=== PATIENT | female | born 1995 | race African-American/Black ===

== ENCOUNTER 2023-10-30 11:39 | Observation (INO) | payer OTHER, SELFPAY ==
--- NOTE | ~2023-10-30 | XR_ITS ---
XR hip BI 2V w AP pelvis Ordering provider: Daniela Raya PA-C History: . osteonecrosis . Comparison: None. FINDINGS: BONES: No acute fracture or dislocation. HIP JOINT SPACES: Mild bilateral hip osteoarthritic changes. SACROILIAC JOINT SPACES/LUMBAR SPINE: The sacroiliac joint spaces are normal. Postoperative changes i n the spine. PUBIC SYMPHYSIS: Normal. SOFT TISSUES: Normal. IMPRESSION: No acute osseous abnormality of the bilateral hips and pelvis. Mild osteoarthritic changes bilaterally. No obvious osteonecrosis if still suspicious is MRI is advis ed. Reviewed, dictated and finalized at location A. IMPRESSION: No acute osseous abnormality of the bilateral hips and pelvis. Mild osteoarthritic changes bilaterally. No obvious osteonecrosis if still susp icious is MRI is advised.
--- NOTE | ~2023-10-30 | CT_ITS ---
EXAMINATION: CT abdomen pelvis w con DATE: 10/30/2023 13:50 INDICATION: Febrile. Urinary tract infection. Severe flank pain. TECHNIQUE: Computed tomography (CT) of the abdomen and pelvis was performed with 100 mL Omnipaque-350 intravenous contrast. Automated exposure control and iterative reconstruction technique were employe d. The dose-length product was 262.25 mGy-cm. COMPARISON: Mild dependent atelectasis in the left lower lobe. Heart size is normal. No pericardial o r pleural effusion. Liver, gallbladder, spleen, pancreas, bilateral adrenal glands and left kidney ar e normal. There are a few scattered regions of decreased enhancement in the right kidney suspicious f or pyelonephritis. Bladder, anteverted uterus and bilateral adnexa are unremarkable. Bowels including the appendix are normal. Small amount of likely physiologic free fluid in the cul-de-sac. No abscess or free intraperitoneal gas. Lumbar levorotoscoliosis with enhancement at posterior spinal fusion wi th bilateral vertical lindsey and pedicle screw fixation beginning caudally at L3 and extending cephalad to at least T8 and beyond the cephalad margin of the field of view. Subarticular sclerosis consistent with osteonecrosis along significant portions of the bilateral femoral heads without evidence of col lapse of the articular surface. FINDINGS: Geographic regions of hypoenhancement in the right kidney suspicious for pyelonephritis. 2. Small amount of likely physiologic free fluid in the cul-de-sac. 3. Osteonecrosis at the bilateral femoral heads. IMPRESSION: 1. Reviewed, dictated and finalized at location A. IMPRESSION: 1.
[2023-10-30 11:56] VITALS: BP 108/67; PULSE 84; RESP 16; TEMP 39.8; O2SAT 96
[2023-10-30] MEDS: ACETAMINOPHEN 500 MG TABLET 1000 MG PO ×2 (12:16→18:57)
--- NOTE | 2023-10-30 12:34 | ED.FEMALEGU ---
HPI - Female Genitourinary General Chief complaint: Urogenital-Female Stated complaint: back pain, being treated for UTI Time Seen by Provider: 10/30/23 12:11 History of Present Illness HPI Narrative: Patient is a 28-year-old female with a history of lupus presenting with flank pain. States that she was treated for pyelonephritis at the end of last month. She was doing well until about 3 days ago when she again developed fevers and chills, nausea, bilateral flank pain, generalized malaise. She saw her event sales manager who started her on Bactrim but unfortunately her symptoms have continued. Denies abdominal pain, vomiting, diarrhea. Denies upper respiratory infection symptoms. Denies further complaints. Related Data Home Medications Medication Instructions Recorded Confirmed hydroxychloroquine 200 mg tablet 400 mg PO DAILY 10/30/23 10/31/23 norethindrone 1 mg-ethinyl 1 tablet PO DAILY 10/30/23 10/31/23 estradiol 35 mcg tablet (Nylia) tofacitinib 11 mg tablet,extended 11 mg PO DAILY 10/30/23 10/30/23 release 24 hr (Xeljanz XR) Allergies Allergy/AdvReac Type Severity Reaction Status Date / Time amoxicillin Allergy Unknown Unknown Verified 10/30/23 16:16 cat dander Allergy Unknown Unknown Verified 10/30/23 16:16 Review of Systems Review of Systems: All systems reviewed & are unremarkable except as noted in HPI and below PMFSH Past Medical History Medical History (Updated 10/31/23 @ 16:26 by Daniela Raya PA-C) Lupus Family History Family History Grandparent Thyroid disorder Social History Social History Smoking status: Never smoker Alcohol intake: current Drinks per week: 1 Substance use: never Substance use type: does not use Do You Feel Safe in your Home?: Yes Lack of Transportation: No Lack of Food: Never True Current Housing: I Have Housing Concerned About Future Housing: No Difficulty Paying Gas/Electric Bills: No Difficulty Paying for Meds: No Currently Unemployed: No Education: Decline to Answer Difficulty w/ Childcare or Family Care: No Spiritual care concerns: No Exam Narrative: GENERAL: nontoxic, in no acute distress, pleasant and cooperative HEAD: Normocephalic, atraumatic. EYES: PERRLA and EOMI. ENT: Nares clear, no rhinorrhea or epistaxis. Mucous membranes moist. NECK: Supple. CHEST: Clear to auscultation. No respiratory distress. HEART: Regular rate and rhythm ABDOMEN: Soft, nontender, nondistended; +bilateral CVA tenderness EXTREMITIES: Normal range of motion. No edema. SKIN: Warm, dry, no rash. NEURO: No focal deficits. Alert and oriented x3. PSYCH: Normal mood and affect. Course Vital Signs Vital signs: Vital Signs Temperature 103.6 F H 10/30/23 11:56 Pulse Rate 84 10/30/23 11:56 Respiratory Rate 16 10/30/23 11:56 Blood Pressure 108/67 10/30/23 11:56 Pulse Oximetry 96 10/30/23 11:56 Temperature 100 F H 10/31/23 14:35 Pulse Rate 88 10/31/23 13:57 Respiratory Rate 16 10/31/23 13:57 Blood Pressure 121/73 10/31/23 13:57 Pulse Oximetry 100 10/31/23 16:47 Oxygen Delivery Room Air 10/31/23 16:47 MDM - Female Genitourinary MDM Narrative Medical decision making narrative: 28-year-old female presenting with fevers, flank pain, nausea. Patient is febrile on arrival T 103.6?. Remainder of vitals are within normal limits. Exam remarkable for the above. Blood work concerning for leukocytosis with a white count of 16. CT abdomen pelvis is concerning for pyelonephritis. Urine certainly infected. Feel patient would benefit from admission for IV antibiotics and fluids given the fact that she has been on p.o. antibiotics for the last several days and she is chronically immunosuppressed. She is agreeable this plan. I spoke with the hospitalist who has accepted her for admission. Differ
[2023-10-30 13:07] LABS: Basophils Percent Auto 0.2 % (0.2-1.2); Eosinophils Percent Auto 0.1 % (0-4.4); Hematocrit 37.8 % (37.0-47.0); Hemoglobin 12.6 g/dL (12.0-15.0); Immature Granulocyte Absolute 0.08 K/mm3 (0.00-0.031); Immature Granulocyte Percent A 0.5 % (0-0.5); Lymphocytes Absolute Auto 0.61 K/mm3 (0.9-3.2); Lymphocytes Percent Auto 3.8 % (18.3-44.2); Mean Corpuscular HGB Conc 33.3 g/dl (32-36); Mean Corpuscular Hemoglobin 30.8 pg (26-34); Mean Corpuscular Volume 92.4 fl (80-100); Mean Platelet Volume 10.3 fl (7.4-10.4); Monocytes Absolute Auto 1.6 K/mm3 (0.1-0.6); Monocytes Percent Auto 9.8 % (2.6-8.5); Neutrophils Absolute Auto 13.8 K/mm3 (1.3-6.7); Neutrophils Percent Auto 85.6 % (45.5-73.1); Platelet Count Result 260 k/mm3 (150-375); Red Blood Count 4.09 M/mm3 (4.2-5.4); Red Cell Distribution Width 13.8 % (11.5-14.5); White Blood Count 16.1 K/mm3 (4.5-10.0)
[2023-10-30] MEDS: KETOROLAC 15 MG/ML VIAL (*BKC) IV PUSH (13:07)
[2023-10-30] MEDS: SODIUM CHLORIDE 0.9% IV 1,000 ML 999 ML IV CONT ×2 (13:07→13:38)
[2023-10-30] MEDS: ONDANSETRON INJ 4 MG/2 ML VIAL IV PUSH (13:07)
[2023-10-30 13:17] LABS: Lactic Acid Reflex 1.1 mmol/L (0.7-2.0)
[2023-10-30 13:18] LABS: Alanine Aminotransferase 12 U/L (6-35); Albumin Level 4.1 g/dL (3.5-5.1); Alkaline Phosphatase 93 U/L (38-126); Anion Gap 12 mmol/L (4-12); Aspartate Amino Transferase 24 U/L (14-36); Blood Urea Nitrogen 7 mg/dL (7-17); Carbon Dioxide 20 mmol/L (22-30); Chloride 101 mmol/L (98-107); Estimated CRCL calculation 64 ml/min; Estimated Glomerular Filt Rate > 60; Glucose 91 mg/dL (65-110); Lipase 24 U/L (23-300); Potassium 3.8 mmol/L (3.4-5.0); Sodium 133 mmol/L (137-145)
[2023-10-30 13:30] LABS: Pregnancy On Board Control Positive; Urine Pregnancy Test Negative
[2023-10-30 13:33] LABS: Add Urine Microscopic? YES; Appearance Urine Cloudy (Clear); Bacteria Urine 2+ /hpf; Bilirubin Urine Negative (Negative); Blood Urine 3+ (Negative); Color Urine Yellow (Yellow); Glucose Urine UA Negative (Negative); Ketones Urine Trace mg/dL (Negative); Leukocyte Esterase Ur 3+ LEU/UL (Negative); Nitrate Urine Negative (Negative); Non Pathogenic Casts 0-2; Protein Urine 1+ mg/dL (Negative); RBC Urine >100 /hpf (0-2); Specific Grav Ur 1.016 (1.001-1.035); Squamous Epithelial Cell Urine None Seen /hpf (Few); WBC Urine >100 /hpf (0-3); pH Urine 6.5 (5.0-9.0)
[2023-10-30 14:02] VITALS: BP 127/70; PULSE 88; RESP 17; TEMP 37.1; O2SAT 100
[2023-10-30 14:08] VITALS: TEMP 37.1
[2023-10-30] MEDS: cefTRIAXone 2 GM/NS 100 ML 2 GM/100 ML BAG IVPB (14:17)
--- NOTE | 2023-10-30 16:00 | PM.IMHP ---
H&P: HPI History of Present Illness Date/Time: 10/30/23 16:00 Chief Complaint: Flank Pain, Fever Narrative: 28 y/o F presents here with dysuria, fever, and chills with PMH of lupus (SLE). The patient presents here from home for further evaluation of fever, chills, nausea, vomiting, migraine, and flank pain. The patient was initially diagnosed with a UTI/pyelonephritis on 10/01. Initially prescribed cefdinir 300 mg b.i.d. x7 days on 10/01/23. Patient improved and was feeling well until approximately 3 days ago when symptoms reoccurred. Patient was then prescribed SMZ/TMP DS 800-160 b.i.d. x5 days on 10/28/23. Despite compliance with p.o. antibiotics, patient has not improved and now has fever, chills, nausea, and one episode of vomiting. Patient has history of lupus and is on Plaquenil. Patient ran out of Plaquenil and has been off it for 2 months, restarted within the last week and has follow-up with her insulation cutter and former in the next week. Denies accompanying abdominal pain, body aches, diaphoresis, dysuria, hematuria, or fatigue. No previous hx of complicated UTIs or resistant UTIs. Initial VS at presentation: 103.6? F, HR 84, RR 16, 108/67, and 96% on RA. ED workup showed: WBC 16.1, no anemia, sodium 133, creatinine 1.2 and GFR >60, and UA consistent with UTI. CT of the abdomen/pelvis showed hypopneas mint in the right kidney suspicious for pyelonephritis small amount of likely physiologic free fluid in the cul-de-sac, and osteonecrosis at the bilateral femoral heads. Review of Systems Review of Systems: All systems reviewed & are unremarkable except as noted in HPI and below PMFSH Past Medical History Medical History Lupus Family History Family History Grandparent Thyroid disorder Social History Social History Smoking status: Never smoker Alcohol intake: current Drinks per week: 1 Substance use: never Substance use type: does not use Do You Feel Safe in your Home?: Yes Lack of Transportation: No Lack of Food: Never True Current Housing: I Have Housing Concerned About Future Housing: No Difficulty Paying Gas/Electric Bills: No Difficulty Paying for Meds: No Currently Unemployed: No Education: Decline to Answer Difficulty w/ Childcare or Family Care: No Spiritual care concerns: No Meds Home Medications and Allergies Home Medications Medication Instructions Recorded Confirmed Type hydroxychloroquine 200 mg tablet 400 mg PO DAILY 10/30/23 10/30/23 History norethindrone 1 mg-ethinyl 1 tablet PO 10/30/23 History estradiol 35 mcg tablet (Nylia) tofacitinib 11 mg tablet,extended 11 mg PO DAILY 10/30/23 10/30/23 History release 24 hr (Xeljanz XR) Allergies Allergy/AdvReac Type Severity Reaction Status Date / Time amoxicillin Allergy Unknown Unknown Verified 10/30/23 16:16 cat dander Allergy Unknown Unknown Verified 10/30/23 16:16 Vital Signs Vital Signs - 24 hr 10/30/23 11:56 10/30/23 14:02 10/30/23 14:08 Temperature 103.6 F H 98.8 F 98.8 F Pulse Rate 84 Respiratory Rate 16 Blood Pressure 108/67 Pulse Oximetry 96 Exam Const: General: comfortable and no acute distress Other: , female, nontoxic appearance HENMT: Face/Nose/Sinus: Normal nares present Mouth: Yes moist mucous membranes Eyes: General: appearance normal, both eyes and all related structures Sclera: sclerae normal Pupils: Equal, round and reactive pupils present EOM: EOMs intact bilaterally Resp: Effort & Inspection: normal respiratory effort Auscultation: clear to auscultation bilaterally Cardio: Rate: regular rate Rhythm: regular rhythm Other: S1-S2 present without murmur, rub, ectopy GI: Other: abdomen soft, nondistended, nontender. Normoactive bowel sounds in
[2023-10-30 16:05] VITALS: BP 98/56; PULSE 81; RESP 16; TEMP 36.4; O2SAT 100
--- NOTE | 2023-10-30 16:14 | ADMGEN ---
This patient, Marilee Correia, was admitted to 3 [facility] Surg Room 302-01. Patient/family oriented to hospital policies and general routines including ID bracelet, bed and alarms, visiting hours, pain management, procedures, bathroom and other care routines, personal items, smoking policy, room service/diet, and visiting hours. Information on how to activate the Rapid Response Team has been discussed. Patient/Family are encouraged to report perceived risks to care and to ask questions if they do not understand what they are told or what they should do.
[2023-10-30] MEDS: LACTATED RINGERS 1,000 ML 100 ML IV CONT (17:16)
[2023-10-30] MEDS: HYDROXYCHLOROQUINE SULFATE 200 MG TABLET 400 MG PO (18:25)
--- NOTE | 2023-10-30 18:34 | PHAR ---
PT'S HOME MED XELJANZ XR 11 MG VERIFIED BY PHARMACY
[2023-10-30 20:57] VITALS: BP 104/74; PULSE 107; RESP 16; TEMP 36.8; O2SAT 97
[2023-10-31] MEDS: traZODone HCL 50 MG TABLET PO (01:01)
[2023-10-31] MEDS: ONDANSETRON INJ 4 MG/2 ML VIAL IV PUSH (02:55)
[2023-10-31] MEDS: oxyCODONE HCL (*CRX) 2.5 MG TAB IR PO (02:55)
[2023-10-31] MEDS: ACETAMINOPHEN 500 MG TABLET 1000 MG PO ×2 (05:15→14:01)
[2023-10-31 06:00] VITALS: BP 100/58; PULSE 93; RESP 18; TEMP 37.8; O2SAT 100
[2023-10-31] MEDS: HYDROXYCHLOROQUINE SULFATE 200 MG TABLET 400 MG PO (09:02)
--- NOTE | 2023-10-31 09:40 | PM.IMPN ---
Progress Note: A&P Assessment and Plan (1) Sepsis: Qualifiers: Sepsis acute organ dysfunction status: without acute organ dysfunction Sepsis type: sepsis due to unspecified organism Qualified Code(s): A41.9 - Sepsis, unspecified organism Code(s): A41.9 - Sepsis, unspecified organism Status: Acute Assessment and Plan: - meets SIRS criteria:Temp, WBC. No hypotension or hypoxia present. - lactic acid: 1.1 - 30 mL/kg = 1890, 2L bolus given - suspected source: pyelonephritis vs osteonecrosis - started on ceftriaxone on 10/29 - blood cultures drawn on 10/29: pending - Abdomen/pelvis CT: Geographic regions of hypoenhancement in the right kidney suspicious for pyelonephritis. Small amount of likely physiologic free fluid in the cul-de-sac. Osteonecrosis at the bilateral femoral heads. - monitor hemodynamics and temp (2) Osteonecrosis: Code(s): M87.9 - Osteonecrosis, unspecified Status: Acute Assessment and Plan: - Abdomen/pelvis CT: Osteonecrosis at the bilateral femoral heads. - XR bilateral hip and pelvis ordered - Ortho consulted (3) Pyelonephritis: Code(s): N12 - Tubulo-interstitial nephritis, not specified as acute or chronic Status: Acute Assessment and Plan: - CT abd/pelvis: 1. Geographic regions of hypoenhancement in the right kidney suspicious for pyelonephritis. 2. Small amount of likely physiologic free fluid in the cul-de-sac. 3. Osteonecrosis at the bilateral femoral heads. - UA:Cloudy, 1+ protein, trace ketones, 3+ blood, 3+ leuks, greater than 100 RBC and WBC, no epithelial cells, 2+ bacteria. - UC pending - previous micro reviewed, no previous on file - started on Ceftriaxone on 10/29 - IV Fluids: 2L bolus, now on 100 mL/hr x 1L (4) Lupus: Code(s): M32.9 - Systemic lupus erythematosus, unspecified Status: Acute Assessment and Plan: Chronic, closely follows rheumotologist. - Continue hydroxychloroquine 400 mg daily Plan Diet: regular GI Prophylaxis: not currently indicated DVT Prophylaxis: low risk Lines: peripheral Code Status: full code Time Spent With Patient Time with patient: 25 - 35 minutes Subjective Date/time seen: 10/31/23 09:40 Interval history: 28 year old female with past medical of lupus presents to the hospital for dysuria, fever and chills. Patient is pleasant lying comfortably in bed. She states she is feeling much better. She states that her right flank pain has improved and she is having less dysuria. She denies any pain, shortness of breath, nausea/vomiting. She remains on rocephin at this time. She was found to have concern for osteonecrosis of the bilateral femoral heads on CT. Will obtain bilateral hip XR and pelvis to further evaluate and consult ortho. Review of Systems Review of Systems: All systems reviewed & are unremarkable except as noted in HPI and below Exam Narrative: F HR 88 RR 16 SpO2 93 BP 121/73 General: female in no acute respiratory distress who is nontoxic appearing, lying semi recumbent in bed. Chest: Lungs are clear to auscultation bilaterally. No wheezes or crackles. CV: Heart was regular rate and rhythm. S1-S2. No murmurs, gallops, or rubs. Abd: Abdomen was soft. Nontender. Nondistended. Positive bowel sounds. Mild but improved right CVA tenderness. No organomegaly or masses. Ext: No clubbing, cyanosis, or edema. 2+ DP pulses bilaterally. Neuro: Patient is alert and oriented x4. Cranial nerves 2-12 are intact. Speech is clear. Psych: Normal mood and affect. Patient is pleasant and cooperative. Skin: Warm and dry. No rashes noted. Objective Data Vital Signs Vital Signs: Vital Signs - 24 hr 10/30/23 11:56 10/30/23 14:02 10/30/23 14:08 Temperature 103.6 F H 98.8 F 98.8 F Pulse Rate 84 88 Respiratory Rate 16 17 Blood Pressure 108/67 127/70 Pulse Oximetry 96 100 Oxygen Delivery 10/30/23 16:05 10/30/23 16:00 10/30/23 20:00 Tempera
[2023-10-31 10:32] LABS: Basophils Percent Auto 0.1 % (0.2-1.2); Eosinophils Absolute Auto 0.1 K/mm3 (0-0.3); Eosinophils Percent Auto 0.4 % (0-4.4); Hematocrit 33.3 % (37.0-47.0); Hemoglobin 10.9 g/dL (12.0-15.0); Immature Granulocyte Absolute 0.07 K/mm3 (0.00-0.031); Immature Granulocyte Percent A 0.5 % (0-0.5); Lymphocytes Absolute Auto 2.03 K/mm3 (0.9-3.2); Lymphocytes Percent Auto 14.6 % (18.3-44.2); Mean Corpuscular HGB Conc 32.7 g/dl (32-36); Mean Corpuscular Volume 94.6 fl (80-100); Mean Platelet Volume 10.3 fl (7.4-10.4); Monocytes Absolute Auto 1.3 K/mm3 (0.1-0.6); Monocytes Percent Auto 9.5 % (2.6-8.5); Neutrophils Absolute Auto 10.4 K/mm3 (1.3-6.7); Neutrophils Percent Auto 74.9 % (45.5-73.1); Platelet Count Result 231 k/mm3 (150-375); Red Blood Count 3.52 M/mm3 (4.2-5.4); Red Cell Distribution Width 14.1 % (11.5-14.5); White Blood Count 13.9 K/mm3 (4.5-10.0)
[2023-10-31 10:38] LABS: Alanine Aminotransferase 10 U/L (6-35); Albumin Level 3.1 g/dL (3.5-5.1); Alkaline Phosphatase 67 U/L (38-126); Anion Gap 6 mmol/L (4-12); Aspartate Amino Transferase 18 U/L (14-36); Bilirubin,Total 0.4 mg/dL (0.2-1.3); Blood Urea Nitrogen 5 mg/dL (7-17); Carbon Dioxide 23 mmol/L (22-30); Chloride 105 mmol/L (98-107); Estimated CRCL calculation 83 ml/min; Estimated Glomerular Filt Rate > 60; Glucose 128 mg/dL (65-110); Potassium 3.8 mmol/L (3.4-5.0); Sodium 134 mmol/L (137-145)
[2023-10-31 13:57] VITALS: BP 121/73; PULSE 88; RESP 16; TEMP 38.2; O2SAT 93
[2023-10-31 14:01] VITALS: TEMP 38.2
[2023-10-31 14:35] VITALS: TEMP 37.7
[2023-10-31 16:47] VITALS: O2SAT 100
[2023-10-31 21:23] VITALS: BP 114/57; PULSE 92; RESP 14; TEMP 37.6; O2SAT 92
[2023-11-01 05:46] VITALS: BP 106/64; PULSE 57; RESP 13; TEMP 37.1; O2SAT 94
--- NOTE | 2023-11-01 07:11 | PM.CNOR ---
Assessment and Plan Assessment and plan (1) Avascular necrosis of bones of both hips: Code(s): M87.051 - Idiopathic aseptic necrosis of right femur; M87.052 - Idiopathic aseptic necrosis of left femur Status: Acute Assessment and Plan: Patient has avascular necrosis of her hips. She has symptoms this time she has taken steroids in the past for lupus. However she is off them at this time. If the hips developed pain her she has difficulty asked her to seek orthopedic consultation. At the age 28 she is really too young for hip replacement surgery. I told her that if the AVN advances she could consider core decompression. I have discussed the avascular necrosis with the patient in detail. History of Present Illness HPI Consult date: 11/01/23 Chief complaint: pyelonephritis Narrative: Patient has incidental finding on a CT scan of avascular necrosis of her hips. She denies any pain. Review of Systems Review of Systems: All systems reviewed & are unremarkable except as noted in HPI and below PMFSH Past Medical History Medical History (Updated 11/01/23 @ 07:14 by Elias Royal MD) Lupus Family History Family History Grandparent Thyroid disorder Social History Social History Smoking status: Never smoker Alcohol intake: current Drinks per week: 1 Substance use: never Substance use type: does not use Do You Feel Safe in your Home?: Yes Lack of Transportation: No Lack of Food: Never True Current Housing: I Have Housing Concerned About Future Housing: No Difficulty Paying Gas/Electric Bills: No Difficulty Paying for Meds: No Currently Unemployed: No Education: Decline to Answer Difficulty w/ Childcare or Family Care: No Spiritual care concerns: No Meds Home Medications and Allergies Home Medications Medication Instructions Recorded Confirmed Type hydroxychloroquine 200 mg tablet 400 mg PO DAILY 10/30/23 10/31/23 History norethindrone 1 mg-ethinyl 1 tablet PO DAILY 10/30/23 10/31/23 History estradiol 35 mcg tablet (Nylia) tofacitinib 11 mg tablet,extended 11 mg PO DAILY 10/30/23 10/30/23 History release 24 hr (Xeljanz XR) Allergies Allergy/AdvReac Type Severity Reaction Status Date / Time amoxicillin Allergy Unknown Unknown Verified 10/30/23 16:16 cat dander Allergy Unknown Unknown Verified 10/30/23 16:16 Vital Signs Vital Signs - 24 hr 10/31/23 08:00 10/31/23 13:57 10/31/23 14:01 Temperature 100.8 F H 100.8 F H Pulse Rate 88 Respiratory Rate 16 Blood Pressure 121/73 Pulse Oximetry 93 Oxygen Delivery Room Air 10/31/23 14:35 10/31/23 16:47 10/31/23 21:23 Temperature 100 F H 99.7 F H Pulse Rate 92 Respiratory Rate 14 Blood Pressure 114/57 L Pulse Oximetry 100 92 Oxygen Delivery Room Air 10/31/23 20:00 11/01/23 05:46 Temperature 98.8 F Pulse Rate 57 L Respiratory Rate 13 Blood Pressure 106/64 Pulse Oximetry 94 Oxygen Delivery Room Air Exam Narrative: Patient has full motion of her hips without pain. Neurologically she is grossly intact. She can ambulate without groin pain. Radiology Reports: Comments: Patient: Marilee Correia EXAMINATION: CT abdomen pelvis w con DATE: 10/30/2023 13:50 INDICATION: Febrile. Urinary tract infection. Severe flank pain. TECHNIQUE: Computed tomography (CT) of the abdomen and pelvis was performed with 100 mL Omnipaque-350 intravenous contrast. Automated exposure control and iterative reconstruction technique were employed. The dose-length product was 262.25 mGy-cm. COMPARISON: Mild dependent atelectasis in the left lower lobe. Heart size is normal. No pericardial or pleural effusion. Liver, gallbladder, spleen, pancreas, bilateral adrenal glands and left kidney are normal. There are a few scattered regions of decreased enhancement
[2023-11-01 07:12] LABS: Basophils Percent Auto 0.3 % (0.2-1.2); Eosinophils Absolute Auto 0.1 K/mm3 (0-0.3); Eosinophils Percent Auto 0.6 % (0-4.4); Hematocrit 38.8 % (37.0-47.0); Hemoglobin 12.6 g/dL (12.0-15.0); Immature Granulocyte Absolute 0.13 K/mm3 (0.00-0.031); Immature Granulocyte Percent A 0.9 % (0-0.5); Lymphocytes Absolute Auto 2.69 K/mm3 (0.9-3.2); Lymphocytes Percent Auto 19.4 % (18.3-44.2); Mean Corpuscular HGB Conc 32.5 g/dl (32-36); Mean Corpuscular Hemoglobin 30.5 pg (26-34); Mean Corpuscular Volume 93.9 fl (80-100); Mean Platelet Volume 10.7 fl (7.4-10.4); Monocytes Absolute Auto 1.7 K/mm3 (0.1-0.6); Monocytes Percent Auto 12.6 % (2.6-8.5); Neutrophils Absolute Auto 9.2 K/mm3 (1.3-6.7); Neutrophils Percent Auto 66.2 % (45.5-73.1); Platelet Count Result 272 k/mm3 (150-375); Red Blood Count 4.13 M/mm3 (4.2-5.4); Red Cell Distribution Width 14.3 % (11.5-14.5); White Blood Count 13.9 K/mm3 (4.5-10.0)
[2023-11-01 07:30] VITALS: PULSE 57; RESP 13; O2SAT 94
[2023-11-01 07:33] LABS: Alanine Aminotransferase 13 U/L (6-35); Albumin Level 3.4 g/dL (3.5-5.1); Alkaline Phosphatase 88 U/L (38-126); Anion Gap 13 mmol/L (4-12); Aspartate Amino Transferase 23 U/L (14-36); Bilirubin,Total 0.6 mg/dL (0.2-1.3); Blood Urea Nitrogen 4 mg/dL (7-17); Calcium 8.9 mg/dL (8.4-10.2); Carbon Dioxide 21 mmol/L (22-30); Chloride 104 mmol/L (98-107); Estimated CRCL calculation 83 ml/min; Estimated Glomerular Filt Rate > 60; Glucose 74 mg/dL (65-110); Potassium 4.8 mmol/L (3.4-5.0); Sodium 138 mmol/L (137-145)
--- NOTE | 2023-11-01 08:15 | PM.IMPN ---
Progress Note: A&P Assessment and Plan (1) Sepsis: Qualifiers: Sepsis type: sepsis due to unspecified organism Sepsis acute organ dysfunction status: without acute organ dysfunction Qualified Code(s): A41.9 - Sepsis, unspecified organism Code(s): A41.9 - Sepsis, unspecified organism Status: Acute Assessment and Plan: - meets SIRS criteria:Temp, WBC. No hypotension or hypoxia present. - lactic acid: 1.1 - 30 mL/kg = 1890, 2L bolus given - suspected source: pyelonephritis vs osteonecrosis - started on ceftriaxone on 10/29 - blood cultures drawn on 10/29: pending - Abdomen/pelvis CT: Geographic regions of hypoenhancement in the right kidney suspicious for pyelonephritis. Small amount of likely physiologic free fluid in the cul-de-sac. Osteonecrosis at the bilateral femoral heads. - monitor hemodynamics and temp (2) Osteonecrosis: Code(s): M87.9 - Osteonecrosis, unspecified Status: Acute Assessment and Plan: - Abdomen/pelvis CT: Osteonecrosis at the bilateral femoral heads. - XR bilateral hip and pelvis: No acute osseous abnormality of the bilateral hips and pelvis. Mild osteoarthritic changes bilaterally. No obvious osteonecrosis if still suspicious is MRI is advised. - Ortho consulted (3) Pyelonephritis: Code(s): N12 - Tubulo-interstitial nephritis, not specified as acute or chronic Status: Acute Assessment and Plan: - CT abd/pelvis: 1. Geographic regions of hypoenhancement in the right kidney suspicious for pyelonephritis. 2. Small amount of likely physiologic free fluid in the cul-de-sac. 3. Osteonecrosis at the bilateral femoral heads. - UA:Cloudy, 1+ protein, trace ketones, 3+ blood, 3+ leuks, greater than 100 RBC and WBC, no epithelial cells, 2+ bacteria. - UC: preliminary- gram - bacilli - previous micro reviewed, no previous on file - started on Ceftriaxone on 10/29 - IV Fluids: 2L bolus, now on 100 mL/hr x 1L (4) Lupus: Code(s): M32.9 - Systemic lupus erythematosus, unspecified Status: Acute Assessment and Plan: Chronic, closely follows rheumotologist. - Continue hydroxychloroquine 400 mg daily Plan Diet: regular GI Prophylaxis: not currently indicated DVT Prophylaxis: low risk Lines: peripheral Code Status: full code Subjective Date/time seen: 11/01/23 08:15 Interval history: 28 year old female with past medical of lupus presents to the hospital for dysuria, fever and chills. Review of Systems Review of Systems: All systems reviewed & are unremarkable except as noted in HPI and below Exam Narrative: General: female in no acute respiratory distress who is nontoxic appearing, lying semi recumbent in bed. Chest: Lungs are clear to auscultation bilaterally. No wheezes or crackles. CV: Heart was regular rate and rhythm. S1-S2. No murmurs, gallops, or rubs. Abd: Abdomen was soft. Nontender. Nondistended. Positive bowel sounds. Mild but improved right CVA tenderness. No organomegaly or masses. Ext: No clubbing, cyanosis, or edema. 2+ DP pulses bilaterally. Neuro: Patient is alert and oriented x4. Cranial nerves 2-12 are intact. Speech is clear. Psych: Normal mood and affect. Patient is pleasant and cooperative. Skin: Warm and dry. No rashes noted. Objective Data Vital Signs Vital Signs: Vital Signs - 24 hr 10/31/23 13:57 10/31/23 14:01 10/31/23 14:35 Temperature 100.8 F H 100.8 F H 100 F H Pulse Rate 88 Respiratory Rate 16 Blood Pressure 121/73 Pulse Oximetry 93 Oxygen Delivery 10/31/23 16:47 10/31/23 21:23 10/31/23 20:00 Temperature 99.7 F H Pulse Rate 92 Respiratory Rate 14 Blood Pressure 114/57 L Pulse Oximetry 100 92 Oxygen Delivery Room Air Room Air 11/01/23 05:46 11/01/23 07:30 Temperature 98.8 F Pulse Rate 57 L 57 L Respiratory Rate 13 13 Blood Pressure 106/64 Pulse Oximetry 94 94 Oxygen Delivery Room Air Intake/Output Intake/Output
[2023-11-01] MEDS: ENOXAPARIN 40 MG/0.4 ML SYRINGE SUB-Q (08:19)
[2023-11-01] MEDS: HYDROXYCHLOROQUINE SULFATE 200 MG TABLET 400 MG PO (08:20)
--- NOTE | 2023-11-01 13:20 | PM.DS ---
DS: Admitting Diagnosis Discharge Date 10/31/24 Admitting Diagnosis Sepsis Osteonecrosis Pyelonephritics Lupus DS: Discharge Diagnosis Discharge Diagnosis (1) Sepsis: Qualifiers: Sepsis type: sepsis due to unspecified organism Sepsis acute organ dysfunction status: without acute organ dysfunction Qualified Code(s): A41.9 - Sepsis, unspecified organism Code(s): A41.9 - Sepsis, unspecified organism Status: Acute (2) Osteonecrosis: Code(s): M87.9 - Osteonecrosis, unspecified Status: Acute (3) Pyelonephritis: Code(s): N12 - Tubulo-interstitial nephritis, not specified as acute or chronic Status: Acute (4) Lupus: Code(s): M32.9 - Systemic lupus erythematosus, unspecified Status: Acute DS: Summary Hospital Course Reason for hospitalization: Sepsis Osteonecrosis Pyelonephritics Lupus Hospital Course: 28 year old female with past medical of lupus presents to the hospital for dysuria, fever and chills. At the time of admission she was meeting sepsis criteria with her temperature and leukocytosis. She received a 2 L bolus at that time. Of note, patient was initially diagnosed with a UTI/pyelonephritis on 10/01. She was initially prescribed cefdinir 300 mg b.i.d. x7 days on 10/01/23. Patient improved and was feeling well until approximately 3 days prior to admission when symptoms reoccurred. Patient was then prescribed SMZ/TMP DS 800-160 b.i.d. x5 days on 10/28/23. On admission patient had a urinalysis concerning for an infection, showing 3+ leukocytes, > 100 WBC, and 2+ bacteria. An abdomen/pelvis CT was obtained and showed hypoenhancement in the right kidney suspicious for pyelonephritis, small amount of likely physiologic free fluid in the cul-de-sac, and osteonecrosis at the bilateral femoral heads. Patient was started on Rocephin at that time and her symptoms continued to improve throughout admission. Patient was discharged on levaquin. Prior to discharge patient stated that her symptoms had resolved, no longer complaining of right flank pain and dysuria. Patient also remained afebrile. Patient had an incidental findings of osteonecrosis at the bilateral femoral heads on the abdomen/pelvis CT. Ortho was consulted at that time. An XR bilateral hip/pelvis showed no acute osseous abnormality of the bilateral hips and pelvis. Mild osteoarthritic changes bilaterally. No obvious osteonecrosis if still suspicious is MRI is advised. Ortho stated that if the hips developed pain or she has difficulty she is to seek orthopedic consultation, as she is too young for hip replacement surgery. Patient was discharged home with family in a stable condition. Discussed with patient that if the urine culture returns with resistance to the Levaquin she will receive a phone call and a new prescription will be sent to her pharmacy. She states understanding. Urine culture came back with resistance. Patient was called and a new antibiotic was sent to her pharmacy. Status at Discharge Functional status at discharge: independent ambulation Time Spent with Patient Time attestation: Total time spent providing and/or coordinating discharge services: Time spent: Greater than 30 minutes Exam Narrative: AF HR 57 RR 13 SpO2 94 BP 106/64 General: female in no acute respiratory distress who is nontoxic appearing, lying semi recumbent in bed. Chest: Lungs are clear to auscultation bilaterally. No wheezes or crackles. CV: Heart was regular rate and rhythm. S1-S2. No murmurs, gallops, or rubs. Abd: Abdomen was soft. Nontender. Nondistended. Positive bowel sounds. No CVA tenderness. No organomegaly or masses. DS: Data Data Completed and Pending Completed studies during hospitalization: Hip/pelvis XR Abdomen/pelvis CT Pending studies at discharge: urine culture Labs on day of discharge: Labs from last 24 hours 11/01/23 06:13 WBC 13.9 H RBC 4.13 L Hgb 12.6 Hct 38.8 MCV 93.9 MCH
== END 2023-11-01 13:45 | disposition home or self-care (01) ==
LOC: ANHED 12:39 → ANH3MEDSUR 10-31 07:03
PROVIDERS: Admitting Provider General Practice; Emergency Provider Emergency Medicine; Visit Provider Student in an Organized Health Care Education/Training Program
DX: A41.9 Sepsis, unspecified organism (principal); M87.051 Idiopathic aseptic necrosis of right femur; M87.052 Idiopathic aseptic necrosis of left femur; M87.9 Osteonecrosis, unspecified; N12 Tubulo-interstitial nephritis, not specified as acute or chronic; M32.9 Systemic lupus erythematosus, unspecified
CPT/HCPCS: 36415; 73521; 74177; 80053; 81001; 81025; 83605; 83690; 85025; 87040; 87077; 87086; 87088; 87186; 96361; 96365; 96375; 99285; A9270; G0378; J0696; J1650; J1885; J2405; J7030; J7120; Q9967